=== PATIENT | female | born 1995 | race Two or more races ===

== ENCOUNTER 2025-07-02 16:51 | Emergency (ER) | payer OTHER ==
[~2025-07-02] VITALS: Ht 170.2 cm; Wt 56.7 kg
[2025-07-02 17:00] VITALS: TEMP 98.4
[2025-07-02 17:47] LABS: PLATELET COUNT (AUTO) 289 K/uL (150-450); RED BLOOD CELL COUNT(AUTO) 4.64 MIL/uL (4.0-5.2); RED CELL DISTRIBUTION WIDTH 12.3 % (11.5-15.0); WHITE BLOOD COUNT (AUTO) 5.9 K/uL (4.3-11.0)
[2025-07-02] MEDS ORDERED: ONDANSETRON HCL/PF 4 MG/2 ML VIAL ONE (17:48)
[2025-07-02] MEDS ORDERED: METOCLOPRAMIDE HCL 10 MG/2 ML VIAL ONE (17:48)
[2025-07-02 18:00] LABS: CALCIUM, SERUM 8.4 mg/dL (8.5-10.1); CREATININE 1.0 mg/dL (0.6-1.3); SODIUM SERUM 141.0 mmol/L (136-145); UREA NITROGEN, BLOOD 12.0 mg/dL (7-18)
[2025-07-02] MEDS: ONDANSETRON HCL/PF 4 MG/2 ML VIAL IVP ONE (18:00)
[2025-07-02 18:05] LABS: INR 1.08 (0.91-1.10)
[2025-07-02] MEDS: METOCLOPRAMIDE HCL 10 MG/2 ML VIAL IV ONE (18:05)
[2025-07-02 18:07] LABS: APPEARANCE,URINE CLEAR (CLEAR); BLOOD, URINE NEGATIVE Ery/uL (NEGATIVE); LEUKOCYTE ESTERASE ,URINE NEGATIVE (NEGATIVE); NITRITE, URINE NEGATIVE (NEGATIVE); UGLUCOSE NEGATIVE (NEGATIVE)
[2025-07-02 18:10] LABS: PREGNANCY TEST URINE QUAL NEGATIVE (NEGATIVE)
[2025-07-02] MEDS: IV NS 0.9% 1,000 ML BAG IV ONE (18:10)
[2025-07-02] MEDS ORDERED: KETOROLAC TROMETHAMINE 15 MG/ML VIAL ONE (18:25)
[2025-07-02] MEDS: KETOROLAC TROMETHAMINE 15 MG/ML VIAL IV ONE (18:26)
[2025-07-02 18:42] LABS: ADD URINE CULTURE YES; SQUAMOUS EPITHELIAL CELL,UR Moderate /HPF (None Seen)
[2025-07-02] MEDS ORDERED: LIDO30AD10 TP (19:25)
[2025-07-02] MEDS ORDERED: ONDA4TAB5 PO (19:25)
[2025-07-02] MEDS ORDERED: CYCL15CA23 PO (19:25)
[2025-07-02] MEDS ORDERED: ASPI1TAB2 PO (19:25)
[2025-07-02 19:34] VITALS: BP 104/65; O2SAT 100
== END 2025-07-02 19:35 | disposition home or self-care (01) ==
LOC: ER 16:51
DX: G43.909 Migraine, unspecified, not intractable, without status migrainosus (principal); M54.2 Cervicalgia; R11.2 Nausea with vomiting, unspecified; R10.20 Pelvic and perineal pain unspecified side
CPT/HCPCS: 99285; 96374; 96375; 96361; 93005; 72050; 85025; 80048; 87086; 83690; 84703; 81001; 36415; 85730; J1885; J1200; J2765; J2405; J7030